=== PATIENT | female | born 1980 ===

== ENCOUNTER 2017-01-16 19:35 | Emergency (ER) | payer SELFPAY ==
--- NOTE | ~2017-01-16 | ER ---
[facility]GE[facility] 36 Y [address] ROOM: [place] [id number] LOCATION: [facility] ADMIT DATE: 01/16/2017 ER/Outpatient Report DISCHARGE DATE: 01/16/2017 FAMILY PHYSICIAN: PHYSICIAN, NO ATTENDING PHYSICIAN: Godfrey Benjamin Time of arrival: 1947. Time of exam: 1947. CHIEF COMPLAINT: Abdominal pain. HISTORY OF PRESENT ILLNESS: The patient states since Sunday she has had mid epigastric abdominal pain. Said nausea and some vomiting. Has not vomited today and has not had fever or chills. She did have two normal bowel movements today. Has not had any urinary frequency or pain. She does do Depo-Medrol for her control and does not have routine periods. She states her last menstrual cycle was approximately 2 months ago. She states the pain comes and goes. It is worse when exercising states that she does burp a lot. ALLERGIES: PENICILLIN. MEDICATIONS: None. PAST MEDICAL HISTORY: Negative. PAST SURGICAL HISTORY: Negative. SOCIAL HISTORY: She denies use of tobacco or drugs. Drinks alcohol on occasional basis only. REVIEW OF SYSTEMS: All negative other than those mentioned in the HPI. PHYSICAL EXAMINATION: VITAL SIGNS: She weighed 57 kg, blood pressure is 136/86, pulse of 76, respirations 18, temperature of 98.1, and O2 saturations 100% on room air. She is awake, alert, and oriented x4. SKIN: [place], warm, and dry. RESPIRATIONS: Even and nonlabored. Lung sounds are clear throughout. [facility] AGE: 36 Y [address] ROOM: [place] [id number] LOCATION: [facility] ADMIT DATE: 01/16/2017 ER/Outpatient Report DISCHARGE DATE: 01/16/2017 FAMILY PHYSICIAN: PHYSICIAN, NO ATTENDING PHYSICIAN: Godfrey Benjamin HEART: Regular rate and rhythm. ABDOMEN: Soft, nondistended. Bowel sounds are present. She is slightly tender in the left upper quadrant. No organomegaly of felt. LABORATORY DATA AND X-RAYS: Lab work was drawn. CBC is within normal limits. Chem panel is within normal limits. Clean-catch UA was normal. The patient was given a gastric cocktail. Chest x-ray was completed. No acute processes noted. She felt as though the pain was resolved with gastric cocktail, however, she felt like she needed to burp. IMPRESSION: Gastric reflux. PLAN: Home, rest, fluids. Avoid milk products. Information was given regarding gastritis diet. The patient was given a prescription for omeprazole to take if her symptoms do not improve in the next week. She needs to follow up with primary provider. She verbalized understanding. ESTRELLA BUSH APRN FOR MD IVAN GALINDO/temitope /[id number] d: 01/17/17 0230 t: 01/22/17 1643, OUTPATIENT REPORT
[2017-01-16 20:06] LABS: BILIRUBIN URINE NEGATIVE (NEGATIVE); BLOOD URINE 50 /UL (NEGATIVE); COLOR URINE YELLOW (YELLOW); GLUCOSE URINE NEGATIVE (NEGATIVE); KETONE URINE NEGATIVE (NEGATIVE); LEUKOCYTES URINE 25 /UL (NEGATIVE); NITRITE URINE NEGATIVE (NEGATIVE); PROTEIN URINE NEGATIVE (NEGATIVE); TURBIDITY URINE CLEAR (CLEAR); UROBILINOGEN URINE NORMAL (NORMAL)
[2017-01-16 20:12] LABS: WBC URINE 0-2 #/HPF (NEGATIVE)
[2017-01-16 20:13] LABS: BACTERIA URINE FEW (NEGATIVE); RBC URINE 0-2 #/HPF (NEGATIVE)
[2017-01-16 20:32] LABS: BASOPHIL % 0.5 %; EOSINOPHIL # 0.1 K/uL (0.0-0.5); EOSINOPHIL % 0.9 %; HEMATOCRIT 38.2 % (33.0-46.0); HEMOGLOBIN 13.3 g/dL (11.0-15.0); IMMATURE GRANULOCYTE % 0.2 %; LYMPHOCYTE # 0.9 K/uL (0.8-4.0); LYMPHOCYTE % 13.4 %; MCH 33.7 pg (27.0-34.0); MCHC 34.8 gm/dL (32.0-36.5); MCV 96.7 fl (83.0-98.0); MONOCYTE # 0.5 K/uL (0.0-1.0); MONOCYTE % 7.6 %; MPV 10.4 fl (9.4-12.4); NEUTROPHIL % 77.4 %; NRBC % 0 /100WBC (0-0.00); PLATELET COUNT 256 K/uL (150-450); RBC 3.95 M/uL (3.50-5.50); RDW-CV 11.4 % (11.9-14.6); WBC 6.4 K/uL (4.0-11.0)
[2017-01-16 20:57] LABS: ALBUMIN 4.1 gm/dL (3.5-5.0); ALK PHOS 68 IU/L (33-138); ALT 41 IU/L (12-78); ANION GAP 11.4 (10.0-19.0); AST 18 IU/L (10-40); BLOOD UREA NITROGEN 14 mg/dL (6-24); CALCIUM 8.6 mg/dL (8.5-10.5); CHLORIDE 107 mMol/L (96-110); CO2 26 mMol/L (22-32); CREATININE 0.8 mg/dL (0.5-1.1); ESTIMATED GFR (MDRD EQUATION) > 60; POTASSIUM 3.4 mMol/L (3.7-5.1); SODIUM 141 mMol/L (135-145); TOTAL BILIRUBIN 0.6 mg/dL (0.0-1.5); TOTAL PROTEIN 7.6 g/dL (6.0-8.4)
== END 2017-01-16 21:17 | disposition disaster alternative care site (69) ==
LOC: GMED 19:35
PROVIDERS: Nurse Practitioner Family
DX: K21.9 Gastro-esophageal reflux disease without esophagitis (principal); Z88.0 Allergy status to penicillin